=== PATIENT | male | born 1950 | race Caucasian/White ===

== ENCOUNTER 2023-05-18 15:54 | Outpatient (REF) | payer MEDICARE, MEDICAID, SELFPAY ==
[2023-05-18 16:49] VITALS: BMI 18.6
[2023-05-18 16:52] VITALS: BP 182/84; PULSE 54; RESP 16; TEMP 36.9; O2SAT 100
== END 2023-05-18 15:55 | disposition home or self-care (01) ==
LOC: HO.MS 15:54
PROVIDERS: PCP Otolaryngology; Visit Provider Ophthalmology
PROC: (CPT 66761; principal; 2023-05-18 16:30)
DX: H40.89 Other specified glaucoma (principal); H40.20X0 Unspecified primary angle-closure glaucoma, stage unspecified
CPT/HCPCS: 66761